=== PATIENT | female | born 1965 | race Asian ===

== ENCOUNTER 2019-05-25 12:07 | Emergency (ER) | payer OTHER ==
[~2019-05-25] VITALS: Ht 172.7 cm; Wt 68.9 kg
[~2019-05-25 12:07] MED LIST: NKM
--- NOTE | 2019-05-25 12:24 | Emergency Room Report ---
History of Present Illness General Chief Complaint: Multiple Trauma/Fall Source: Patient Present Illness HPI 53-year-old female patient presents the ER after a fall injury. Reports that she was pushing her mother in a wheelchair when the wheelchair fell forward and she fell forward onto the wheelchair. Reports she fell onto her left hand and face. Reports she chipped her tooth. Denies loss of consciousness. Denies vomiting or vision changes. Reports pain in left hand, wrist and shoulder. Denies loss of range of motion. Denies other aggravating or relieving factors. Patient is right-hand dominant. Allergies: Coded Allergies: AMOXICILLIN (Verified Allergy, Unknown, 05/25/19) ASPIRIN (Verified Allergy, Unknown, 05/25/19) NAPROXEN (Verified Allergy, Unknown, 05/25/19) Patient History Past Medical History: see triage record Last Menstrual Period: menaupausal Reviewed Nursing Documentation: PMH: Agreed; PSxH: Agreed Nursing Documentation-PMH Past Medical History: No Stated History Review of Systems All Other Systems: negative except mentioned in HPI Physical Exam Vital Signs Date Time Temp Pulse Resp B/P (MAP) Pulse Ox O2 Delivery O2 Flow Rate FiO2 05/25/19 12:03 98.1 71 16 113/68 (83) 96 Room Air Sp02 EP Interpretation: reviewed, normal General Appearance: well appearing, no apparent distress, alert, GCS 15, non- toxic Head: normocephalic, atraumatic, other - Negative childers sign, negative raccoon eyes Eyes: bilateral eye normal inspection, bilateral eye PERRL ENT: hearing grossly normal, normal pharynx, no angioedema, normal voice, uvula midline, moist mucus membranes, other - Left central incisor chipped, no bleeding, no gum bruising, negative tongue blade test Neck: full range of motion, no bony tend Respiratory: lungs clear, normal breath sounds, no rhonchi, no respiratory distress, no accessory muscle use, no wheezing, speaking full sentences Cardiovascular #1: regular rate, rhythm, no edema Cardiovascular #2: 2+ radial (R), 2+ radial (L) Musculoskeletal: back normal, digits/nails normal, gait/station normal, normal range of motion, swelling - Mild swelling and ecchymosis over the fifth metacarpal neck, other - Able to make a fist, pain with ROM, no loss of knuckle height; no snuffbox TTP, full ROM of wrist and shoulder, no TTP over shoulder, tender - Tenderness to palpation over left fifth metacarpal neck Neurologic: alert, oriented x3, responsive, automation tester III-XII nml as tested, motor strength/tone normal, sensory intact, normal gait, speech normal Psychiatric: mood/affect normal Lymphatic: no adenopathy Medical Decision Making PA Attestation Dr. Whaley is my supervising Physician whom patient management has been discussed with. Diagnostic Impression: Primary Impression: Fall Additional Impressions: Chipped tooth Hand contusion ER Course Pt. presents to the ED c/o fall injury, pain in left hand and dental pain. Ddx considered but are not limited to sprain, strain, contusion, fracture, mandibular fracture, dental fracture. Vital signs: are WNL, pt. is afebrile ER COURSE: Cranial nerves intact, no LOC, speaking full sentences, AOx4, does not require CT head at this time. negative tongue blade test, low suspicion for mandibular fracture. Does not require CT face. Follow-up with dentist for tooth injury. xray of left hand negative. Advised on RICE, rest, ice, compression, elevation. Patient placed into a finger splint and wrist brace. followup in 1 week with PCP for repeat x-rays to rule out occult fracture. DISCHARGE: Rx provided for Motrin At this time pt is stable for d/c to home. Patient is resting comfortably, in no acute distress, nontoxic appearing, talking without difficulty. Patient to take medications as instructed Will provide with patient care instructions and any necessary prescriptions. Care plan and follow-up instructions provided. Patient instructed to follow-up with primary care provider in 3 - 5 days. Patient questions asked and answered. Patient reports understanding and agreement to treatment plan. ER precautions given. Patient instructed to return to ER immediately for any new or worsening of symptoms including but not limited to increasing SOB, persistent fever, chest pain, intractable vomiting, dizziness, vision changes. - Please note that this Emergency Department Report was dictated using [employer] supervisor technology software, occasionally this can lead to erroneous entry secondary to interpretation by the dictation equipment. Other X-Ray Diagnostic Results Other X-Ray Diagnostic Results : X-Ray ordered: left hand # of Views/Limited Vs Complete: 3 View Indication: Pain EP Interpretation: Yes PA Xray: Interpretation reviewed, by supervising MD, and agrees with findings. Interpretation: no dislocation, no soft tissue swelling, no fractures Impression: No acute disease KALYN Scribgilberto Text Ehsan Garcia PA-C Last Vital Signs Date Time Temp Pulse Resp B/P (MAP) Pulse Ox O2 Delivery O2 Flow Rate FiO2 05/25/19 12:03 98.1 71 16 113/68 (83) 96 Room Air Status: improved Disposition: HOME, SELF-CARE Condition: Stable Patient Instructions: Fall Prevention in the Home, [id number], Hand Contusion , [id number], Tooth Injuries, [id number] Additional Instructions: Patient instructed to follow up with primary care provider and discuss further referral to orthopedics/physical therapy/pain management as needed. Follow-up with dentis for dental pain. May require dental tooth implant. If unable to followup with PCP, followup with orthopedic urgent care in 5-7 days , call to schedule appointment. Patient instructed on RICE method: rest, ice, compression, elevation. Patient instructed to WBAT. Take medications as directed. Patient questions asked and answered. ER precautions given, patient instructed to return to ER immediately for any new or worsening of symptoms. [facility] [address] [facility] [address] [facility], [address] [email or web address] Remi Garcia May 25, 2019 12:24
--- NOTE | 2019-05-25 12:34 | NUR ---
ED Nurse Note: Pt brought in by RA 829 d/t fall. NO LOC and active bleeding. Pt aaox4, no respiratory distress.
--- NOTE | 2019-05-25 12:45 | NUR ---
ED Nurse Note: xray at bedside
[2019-05-25 13:01] VITALS: BP 137/62
[2019-05-25 13:57] VITALS: BP 137/62
--- NOTE | 2019-05-25 15:22 | Diagnostic Imaging Report ---
History: PAIN Exam: XR LEFT HAND 3 views, 4 total images Comparison: None available FINDINGS: No fracture or dislocation. The joint spaces appear within limits. IMPRESSION: No fracture or dislocation.
== END 2019-05-25 13:57 | disposition home or self-care (01) ==
LOC: EDBD 12:07 → EMR 12:20
DX: S60.222A Contusion of left hand, initial encounter (principal); K03.81 Cracked tooth; Z88.1 Allergy status to other antibiotic agents; Z88.6 Allergy status to analgesic agent; W01.198A Fall on same level from slipping, tripping and stumbling with subsequent striking against other object, initial encounter; Y92.9 Unspecified place or not applicable
CPT/HCPCS: 29130; 99283